=== PATIENT | female | born 1940 | race Two or more races ===

== ENCOUNTER → 2019-05-05 | Outpatient (CLI) | payer MEDICAID ==
[~2019-05-05] MED LIST: ACET325T82 PO; ASP81EC PO; DIC10C PO; LOPE2CAP PO; SIMV-13 PO
== END | disposition home or self-care (01) ==
LOC: Rad HDHVI 07:59
PROVIDERS: ATTEND Internal Medicine
DX: J84.10 Pulmonary fibrosis, unspecified (principal); I07.1 Rheumatic tricuspid insufficiency; J44.9 Chronic obstructive pulmonary disease, unspecified; E78.5 Hyperlipidemia, unspecified; R07.9 Chest pain, unspecified; M85.80 Other specified disorders of bone density and structure, unspecified site; M19.019 Primary osteoarthritis, unspecified shoulder; M47.819 Spondylosis without myelopathy or radiculopathy, site unspecified
CPT/HCPCS: 71046; 93306

== ENCOUNTER → 2019-05-10 | Outpatient (CLI) | payer MEDICAID ==
[~2019-05-10] VITALS: Ht 149.9 cm; Wt 43.1 kg
[~2019-05-10] MED LIST changes: +ADENOSINE 36 MG in GIVE UN-DILUTED 0 ML IV ONE; +ADENOSINE 90 MG/30 ML INJ IV ONE
== END | disposition home or self-care (01) ==
LOC: Rad HDHVI 08:07
PROVIDERS: ATTEND Internal Medicine
DX: I25.10 Atherosclerotic heart disease of native coronary artery without angina pectoris (principal); I10 Essential (primary) hypertension; R07.89 Other chest pain; R42 Dizziness and giddiness; E11.9 Type 2 diabetes mellitus without complications; E78.00 Pure hypercholesterolemia, unspecified
CPT/HCPCS: 78452; 93005; 96374; 96375; A9500; J0153